=== PATIENT | male | born 1935 | race Caucasian/White ===

== ENCOUNTER 2019-01-05 16:25 | Emergency (ER) | payer OTHER ==
[~2019-01-05] VITALS: Ht 182.9 cm; Wt 77.1 kg
[2019-01-05] MEDS ORDERED: Alphagan P5 ML BOTHEYES (16:37)
[2019-01-05] MEDS ORDERED: [UNRECOGNIZED DRUG - OTHER] PO (16:38)
[2019-01-05] MEDS ORDERED: DIAPER RASH OIN56 GM TOP (16:40)
[2019-01-05] MEDS ORDERED: FEROSUL220 MG/5 M PO (16:42)
[2019-01-05] MEDS ORDERED: MIRALAX17 GM PO (16:43)
[2019-01-05] MEDS ORDERED: [UNRECOGNIZED DRUG - OTHER] TOP (16:45)
[2019-01-05] MEDS ORDERED: TIMOLOL MALEATE5 ML BOTHEYES (16:47)
[2019-01-05] MEDS ORDERED: ASCO500 PO (16:48)
[2019-01-05] MEDS ORDERED: THERA1 EACH PO (16:49)
[2019-01-05] MEDS ORDERED: D3-20002000 UNIT PO (16:49)
[2019-01-05] MEDS ORDERED: ACETAMINOPHEN325 MG PO (16:50)
[2019-01-05] MEDS ORDERED: BISM300CH PO (16:52)
[2019-01-05] MEDS ORDERED: Milk Of Ma400 MG/5 M PO (16:53)
[2019-01-05] MEDS ORDERED: BISA10S PR (16:54)
[2019-01-05] MEDS ORDERED: CVS DISPOSABLE399 ML PR (16:55)
[2019-01-05] MEDS ORDERED: LOPE2C PO (16:56)
[2019-01-05] MEDS ORDERED: Mucus Relief400 MG PO (16:58)
[2019-01-05] MEDS ORDERED: ALBU90OI61 INH (16:59)
[2019-01-05] MEDS ORDERED: Nystatin15 GM TOP (16:59)
[2019-01-05 18:23] LABS: BASOPHILS ABSOLUTE AUTO 0.03 K/mm3 (0.00-0.23); BASOPHILS PERCENT AUTO 0 % (0-2); EOSINOPHILS PERCENT AUTO 3 % (0-6); Hematocrit 42.6 % (37.0-53.0); IMMATURE GRAN ABSOLUTE AUTO 0.04 K/mm3 (0.00-0.10); IMMATURE GRAN PERCENT AUTO 0 % (0-1); LYMPHOCYTES ABSOLUTE AUTO 1.68 K/mm3 (0.84-5.20); LYMPHOCYTES PERCENT AUTO 15 % (21-46); MONOCYTES ABSOLUTE AUTO 0.83 K/mm3 (0.16-1.47); MONOCYTES PERCENT AUTO 8 % (4-13); Mean Corpuscular HGB 32.1 pg (26.0-34.0); Mean Corpuscular HGB Conc 32.9 g/dL (31.5-36.5); Mean Corpuscular Volume 98 fL (80-100); Mean Platelet Volume 9.7 fL (9.1-12.4); NEUTROPHILS ABSOLUTE AUTO 8.07 K/mm3 (1.96-9.15); NEUTROPHILS PERCENT AUTO 74 % (41-73); Platelet Count 178 K/mm3 (150-400); RDW Coefficient Variation 12.9 % (11.7-14.2); RDW Standard Deviation 46.3 fL (35.1-46.3); Red Blood Cell Count 4.36 M/mm3 (4.30-5.90); White Blood Cell Count 10.95 K/mm3 (4.00-11.30)
[2019-01-05 18:45] LABS: Alanine Aminotransfer (ALT/SGP 18 U/L (12-78); Albumin, Blood 3.3 g/dL (3.4-5.0); Albumin/Globulin Ratio 0.7 (0.8-1.8); Alk Phos 93 U/L (50-136); Anion Gap 4 mmol/L (6-16); Aspartate Aminotrans (AST/SGOT 13 U/L (12-37); Bilirubin, Total 0.4 mg/dL (0.1-1.0); Blood Urea Nitrogen 21 mg/dL (8-24); CO2, Blood 28 mmol/L (21-32); Calcium, Blood 8.8 mg/dL (8.5-10.1); Chloride, Blood 108 mmol/L (98-108); Creatinine, Blood 0.68 mg/dL (0.60-1.20); Globulin, Blood 4.5 g/dL (2.2-4.0); Glomerular Filtration Rate >60 (60-); Glucose, Blood 104 mg/dL (70-99); Potassium, Blood 3.9 mmol/L (3.5-5.5); Sodium, Blood 140 mmol/L (136-145); Total Protein, Blood 7.8 g/dL (6.4-8.2); Troponin I <0.015 ng/mL (0.000-0.040)
[2019-01-05 21:10] LABS: Source, Urine Catheter
[2019-01-05 21:18] LABS: Appearance, Urine Clear (Clear); Bilirubin, Urine Neg (Neg); Blood, Urine 1+ (Neg); Color, Urine Yellow (P-Yellow); Glucose Qualitative, Urine Neg (Neg); Ketones, Urine Neg (Neg); Leukocyte Esterase, Urine Neg (Neg); Nitrite, Urine Neg (Neg); Protein, Urine Neg (Neg); Urobilinogen, Urine NORM (Normal)
[2019-01-05 21:29] LABS: Red Blood Cells, Urine 0-2 /hpf (0-2); White Blood Cells, Urine Not Seen /hpf (0-5)
[2019-01-05 21:30] LABS: Bacteria Not Seen /hpf; Mucus Light (0-Heavy); Squamous Epithelial Cells Not Seen /hpf (Few)
== END 2019-01-05 23:11 | disposition home or self-care (01) ==
LOC: EDBD 16:25 → ER 16:25
PROVIDERS: Emergency Medicine
DX: R41.82 Altered mental status, unspecified (principal); F03.90 Unspecified dementia, unspecified severity, without behavioral disturbance, psychotic disturbance, mood disturbance, and anxiety; J44.9 Chronic obstructive pulmonary disease, unspecified; Z79.899 Other long term (current) drug therapy
CPT/HCPCS: 36415; 51701; 70450; 71046; 80053; 81001; 84484; 85025; 93005; 93010; 99285-25; J7030